=== PATIENT | female | born 1945 | race Caucasian/White ===

== ENCOUNTER 2018-04-02 10:49 | Emergency (ER) | payer OTHER ==
[~2018-04-02 10:49] MED LIST: ASPIRIN81 M4 PO; ATORVASTATIN CA10 M1 PO; FLUTICASONE PRO16 GM NASB; JANUMET 50-1,01 EACH PO; LISINOPRIL5 M1 PO; MOBIC15 M1 PO; OXYBUTYNIN CHLOR5 M2 PO; PANTOPRAZOLE SO40 M1 PO; SERTRALINE HCL50 MG PO; SPIRIVA18 MCG INH; SYMBICORT 16010.2 GM INH; VENTOLIN HFA18 GM INH
--- NOTE | 2018-04-02 12:17 | RADIOLOGY REPORT ---
EXAMINATION: XR ANKLE, LEFT CLINICAL INFORMATION: Significant swelling/ecchymosis of left ankle. Evaluate for fracture. COMPARISON: None TECHNIQUE: AP, lateral, and mortise views of the left ankle. FINDINGS: There is no acute fracture or malalignment. The ankle mortise is intact. There is medial and lateral soft tissue swelling. There is suspected subcutaneous edema in the visualized distal lower leg. There is a tiny posterior calcaneal spur. IMPRESSION: Soft tissue swelling. No acute fracture.
--- NOTE | 2018-04-02 12:19 | RADIOLOGY REPORT ---
EXAMINATION: XR KNEE, LEFT CLINICAL INFORMATION: Left knee injury with swelling/bruising. Evaluate for fracture. COMPARISON: None TECHNIQUE: AP, bilateral oblique, and crosstable lateral views (5 images) of the left knee. FINDINGS: There is no fracture, malalignment, or joint effusion. There are small marginal osteophytes involving the lateral compartment. There is no apparent joint space narrowing. There is mild subcutaneous edema in the medial upper calf. IMPRESSION: Mild osteoarthritis of the lateral compartment. No acute fracture. Mild subcutaneous edema in the medial upper calf.
--- NOTE | 2018-04-02 14:22 | ED UPPER/LOWER EXTREMITY COMPL ---
History of Present Illness General Chief Complaint: Lower Extremity Injury Stated Complaint: L LEG INJURY Source: patient Exam Limitations: no limitations Vital Signs & Intake/Output Vital Signs & Intake/Output Vital Signs Date Time Temp Pulse Resp B/P B/P Pulse O2 O2 Flow FiO2 Mean Ox Delivery Rate 04/02 1512 Room Air 04/02 1512 98.3 60 16 182/104 97 Room Air 04/02 1058 97.2 71 18 171/91 95 Room Air Allergies Coded Allergies: venom-honey bee (Severe, ANAPHYLAXIS 01/07/18) Penicillins (HIVES 01/07/18) codeine (HIVES 01/07/18) Reconcile Medications Albuterol Sulfate (Ventolin Hfa) 90 MCG HFA.AER.AD 2 PUF INH Q4-6 PRN PRN SHORTNESS OF BREATH (Reported) Aspirin (Aspirin*) 81 MG TAB.CHEW 1 TAB PO DAILY HEART HEALTH (Reported) Atorvastatin Calcium 10 MG TABLET 1 TAB PO QPM CHOLESTEROL (Reported) Budesonide/Formoterol Fumarate (Symbicort 160-4.5 Mcg Inhaler) 160 MCG-4.5 MCG/ ACTUATION HFA.AER.AD 2 PUF INH BID BREATHING PROBLEMS (Reported) Fluticasone Propionate 50 MCG/ACTUATION SPRAY.SUSP 2 SPRAY [place] DAILY ALLERGIES (Reported) Lisinopril 5 MG TABLET 1 TAB PO DAILY HEART (Reported) Magnesium Oxide 400 MG TABLET 1 TAB PO DAILY PVCS Oxybutynin Chloride 5 MG TABLET 1 TAB PO BID BLADDER (Reported) Pantoprazole Sodium 40 MG TABLET.DR 1 TAB PO DAILY GI (Reported) Sertraline HCl 50 MG TABLET 1 TAB PO DAILY MENTAL HEALTH (Reported) Sitagliptin Phos/Metformin HCl (Janumet 50-1,000 MG Tablet) 50 MG-1,000 MG TABLET 1 TAB PO BID DIABETES (Reported) Tiotropium [place] (Spiriva) 18 MCG CAP.W.DEV 1 CAP INH DAILY BREATHING PROBLEMS (Reported) Triage Note: 73F BUMPED L KNEE ON SATURDAY ON HER BED AND NOW HAS INCREASED SWELLING AND DIFFUSE ECCHYMOSIS TO ENTIRE LLE AND ANKLE. ONLY TAKES BABY ASPIRIN, NO OTHER THINNERS. ABLE TO AMBULATE WITH CANE. Triage Nurses Notes Reviewed? yes Onset: Abrupt Duration: day(s): (5) Timing: recent history Severity: moderate, severe Pain/Injury Location: Left: Leg, Knee. No Modifying Factors: none HPI: 73-year-old female comes into the emergency room for further evaluation of left lower extremity pain and swelling. Patient reports that she hit her leg on the bed. She's had some swelling and bruising since then and the leg has gotten larger. Denies any anticoagulants. On 81 mg aspirin tablet. Comes in for further evaluation. (Jim Lee) Past History Travel History Traveled to [place] past 21 day No Medical History Any Pertinent Medical History? see below for history Neurological: NONE EENT: NONE Cardiovascular: hypertension, hyperlipidemia Respiratory: COPD Gastrointestinal: NONE Hepatic: NONE Renal: NONE Musculoskeletal: NONE Psychiatric: NONE Endocrine: DM Surgical History Surgical History: non-contributory Psychosocial History Who do you live with Patient/Self Services at Home None What is your primary language Pashto Tobacco Use: Current Daily Use Daily Tobacco Use Amount/Type: => 5 Cigarettes daily Family History Hx Contributory? No (Jim Lee) Review of Systems Review of Systems Constitutional: Reports: no symptoms. EENTM: Reports: no symptoms. Respiratory: Reports: no symptoms. Cardiovascular: Reports: no symptoms. Gastrointestinal/Abdominal: Reports: no symptoms. Genitourinary: Reports: no symptoms. Musculoskeletal: Reports: see HPI. Skin: Reports: see HPI. Neurological/Psychological: Reports: no symptoms. Hematologic/Endocrine: Reports: no symptoms. Immunological: Reports: no symptoms. All Other Systems: Reviewed and Negative (Jim Lee) Physical Exam Physical Exam General Appearance: well developed/nourished, mild distress Head: atraumatic Eyes: Bilateral: normal appearance. Ears, Nose, Throat: normal ENT inspection, hearing grossly normal Neck: normal inspection Cardiovascular/Respiratory: no respiratory distress Back: normal inspection Leg Left: swelling, ecchymosis, 1+ PEDAL EDEMA, No erythema, no warmth, no midshaft tibia pain Neurologic/Tendon: normal sensation, normal motor functions, normal tendon functions, responds to pain, no evidence tendon injury, no pulse deficit Skin: intact, normal color, warm/dry (Jim Lee) Progress Differential Diagnosis: contusion, dislocation, fracture, sprain, tendon injury Plan of Care: Orders Procedure Date/time Status EKG 04/02 1526 Active Current Medications Sig/Avelino Start time Last Medication Dose Stop Time Status Admin Magnesium Chloride 64 MG ONCE ONE 04/02 1545 CAN (Slow-Mag) 04/02 154 Diagnostic Imaging: Viewed by Me: Radiology Read, Ultrasound. Discussed w/RAD: Radiology Read, Ultrasound. Radiology Impression: PATIENT: BC MUNIZ PRESENT AGE: 73 PATIENT ACCOUNT NO: [id number] : 47 LOCATION: [facility] [place] ORDERING PHYSICIAN: Shankar SCHERER SERVICE DATE: 04/02/18 EXAM TYPE: RAD - XRY-KNEE COMPLETE LEFT EXAMINATION: XR KNEE, LEFT CLINICAL INFORMATION: Left knee injury with swelling/bruising. Evaluate for fracture. COMPARISON: None TECHNIQUE: AP, bilateral oblique, and crosstable lateral views (5 images) of the left knee. FINDINGS: There is no fracture, malalignment, or joint effusion. There are small marginal osteophytes involving the lateral compartment. There is no apparent joint space narrowing. There is mild subcutaneous edema in the medial upper calf. IMPRESSION: Mild osteoarthritis of the lateral compartment. No acute fracture. Mild subcutaneous edema in the medial upper calf. DICTATED BY : Isra Woodall MD DATE/TIME DICTATED:04/02/181213 ORDAINED MINISTER: SAMANTHA DATE/TIME TRANSCRIBED:04/02/181213 CONFIDENTIAL, DO NOT COPY WITHOUT APPROPRIATE AUTHORIZATION. <Electronically signed in Other Vendor System> SIGNED BY: Isra Woodall MD 04/02/181218, PATIENT: BC MUNIZ PRESENT AGE: 73 PATIENT ACCOUNT NO: [id number] : 47 LOCATION: [facility] [place] ORDERING PHYSICIAN: Shankar SCHERER SERVICE DATE: 04/02/18 EXAM TYPE: RAD - XRY-ANKLE 3 OR MORE VIEWS L EXAMINATION: XR ANKLE , LEFT CLINICAL INFORMATION: Significant swelling/ecchymosis of left ankle. Evaluate for fracture. COMPARISON: None TECHNIQUE: AP, lateral, and mortise views of the left ankle. FINDINGS: There is no acute fracture or malalignment. The ankle mortise is intact. There is medial and lateral soft tissue swelling. There is suspected subcutaneous edema in the visualized distal lower leg. There is a tiny posterior calcaneal spur. IMPRESSION: Soft tissue swelling. No acute fracture. DICTATED BY: Isra Woodall MD DATE/TIME DICTATED:04/02/181212 ORDAINED MINISTER:SAMANTHA DATE/TIME TRANSCRIBED:04/02/181212 CONFIDENTIAL, DO NOT COPY WITHOUT APPROPRIATE AUTHORIZATION. <Electronically signed in Other Vendor System> SIGNED BY: Isra Woodall MD 04/02/181216, PATIENT: BC MUNIZ PRESENT AGE: 73 PATIENT ACCOUNT NO: [id number] : 47 LOCATION: [facility] [place] ORDERING PHYSICIAN: Jim SCHERER SERVICE DATE: 04/02/18 EXAM TYPE: US - US-UNILATERAL VENOUS DOPPLER EXAMINATION: US TRIPLEX LOWER EXTREMITY, LEFT CLINICAL INFORMATION: Left leg swelling. History of recent trauma and bruising. COMPARISON: None TECHNIQUE: Color-flow triplex imaging with spectral analysis and compression Doppler were performed on the lower extremity. FINDINGS: The left common femoral vein is compressible and exhibits a normal phasic waveform; this suggests that the iliac veins are widely patent above. Within the proximal thigh, the visualized profunda femoris vein is patent. The examined greater saphenous vein and saphenofemoral junction are normal. Superficial femoral vein is patent in the proximal, mid and distal thigh. Popliteal vein appears normal to the level of the trifurcation. On traylor scale and color Doppler images, the visualized calf veins are grossly patent. No evidence of Brown's cyst. Within subcutaneous tissues in the area of bruising of the anterior leg, a small, 0.5 x 0.9 x 1 cm hypoechoic, avascular focus likely represents a hematoma. IMPRESSION: 1. No evidence of deep vein thrombosis in the left lower extremity. 2. Small hematoma in subcutaneous tissues of the anterior leg. DICTATED BY: Michael Tobar MD DATE/TIME DICTATED:04/02/181443 ORDAINED MINISTER:SAMANTHA DATE/TIME TRANSCRIBED:04/02/181443 CONFIDENTIAL, DO NOT COPY WITHOUT APPROPRIATE AUTHORIZATION. <Electronically signed in Other Vendor System> SIGNED BY: Michael Tobar MD 04/02/18 [id number] (Jim Lee) Departure Departure Disposition: HOME OR SELF CARE Condition: Stable Clinical Impression Primary Impression: Hematoma of left lower extremity Referrals: Laura Rodriguez APRN (PCP/Family) Additional Instructions: Compression. Elevation. Return if any concerns worsening symptoms. Please go over all results of today's visit with your primary care doctor. Contact your primary care doctor to let them know you were here in the emergency room. There may be nonspecific findings which may not be related to your visit today here in the emergency room but may require further evaluation and chronic monitoring by your primary care doctor. If you had a laceration today the chance of foreign body always remains. You should follow-up with your primary care doctor for recheck in 3-5 days for a wound check. If you had an x-ray done there is a chance that a fracture could have been missed on initial read and you should follow-up with your primary care doctor for repeat x-rays if symptoms persist. If your blood pressure was elevated here in the emergency room please have rechecked by robin primary care doctor within the next 48. If you were prescribed a narcotic here in the emergency room or any type of controlled substances you're not allowed to drive while taking this medication or operate any type of heavy machinery. Narcotics can make you feel lightheaded dizziness nausea and can cause constipation. You may need to warehouse order picker a stool softener. Thank you for choosing [facility] emergency room. Please return to the emergency room immediately if you have any other concerns worsening of symptoms. Departure Forms: Customer Survey General Discharge Information Prescriptions: Current Visit Scripts Magnesium Oxide 1 TAB PO DAILY #30 TAB Comments 04/02/2018 6:22:29 PM Patient's blood pressure elevated. The nurse reports that when she took her fall she felt like it was irregular. Patient denies any chest pain shortness of breath lightheaded dizziness or palpitations. She has no acute cardiac or pulmonary complaints today. She reports that she has a history of PVCs. 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 She had frequent PVCs on her previous EKG. She was started on oral magnesium. This is not why she was here and can be followed up as an outpatient. She clinically looks well. She is nontoxic-appearing. She is in no apparent distress. Case was discussed with Dr. Perry. No evidence of DVT. No evidence of fracture. Weightbearing as tolerated. Patient has a hematoma to the left lower leg. No signs of infection. (Jim Lee) PA/FIRE EXTINGUISHER TECHNICIAN Co-Sign Statement Statement: ED Attending supervision documentation- [] I saw and evaluated the patient. I have also reviewed all the pertinent lab results and diagnostic results. I agree with the findings and the plan of care as documented in the PA's/FIRE EXTINGUISHER TECHNICIAN's documentation. [X] I have reviewed the ED Record and agree with the PA's/FIRE EXTINGUISHER TECHNICIAN's documentation. [] Additions or exceptions (if any) to the PAs/FIRE EXTINGUISHER TECHNICIAN's note and plan are summarized below: [] (Orlando ESQUIVEL,Kenyon Arguello)
--- NOTE | 2018-04-02 14:51 | ULTRASOUND REPORT ---
EXAMINATION: US TRIPLEX LOWER EXTREMITY, LEFT CLINICAL INFORMATION: Left leg swelling. History of recent trauma and bruising. COMPARISON: None TECHNIQUE: Color-flow triplex imaging with spectral analysis and compression Doppler were performed on the lower extremity. FINDINGS: The left common femoral vein is compressible and exhibits a normal phasic waveform; this suggests that the iliac veins are widely patent above. Within the proximal thigh, the visualized profunda femoris vein is patent. The examined greater saphenous vein and saphenofemoral junction are normal. Superficial femoral vein is patent in the proximal, mid and distal thigh. Popliteal vein appears normal to the level of the trifurcation. On traylor scale and color Doppler images, the visualized calf veins are grossly patent. No evidence of Brown's cyst. Within subcutaneous tissues in the area of bruising of the anterior leg, a small, 0.5 x 0.9 x 1 cm hypoechoic, avascular focus likely represents a hematoma. IMPRESSION: 1. No evidence of deep vein thrombosis in the left lower extremity. 2. Small hematoma in subcutaneous tissues of the anterior leg.
[2018-04-02 15:12] VITALS: BP 182/104
[2018-04-02] MEDS ORDERED: MAGNESIUM OXID400 M1 PO (15:41)
== END 2018-04-02 15:55 ==
LOC: ERH 10:49
DX: S80.12XA Contusion of left lower leg, initial encounter (principal); I10 Essential (primary) hypertension; F17.210 Nicotine dependence, cigarettes, uncomplicated; W22.03XA Walked into furniture, initial encounter
CPT/HCPCS: 73562-LT; 73610-LT; 93005; 93010